=== PATIENT | male | born 1985 | race Caucasian/White ===

== ENCOUNTER 2020-12-03 11:19 | Emergency (ER) | payer OTHER, SELFPAY ==
--- NOTE | ~2020-12-03 | XR_ITS ---
XR chest 2V DATE: 12/03/2020 11:42 INDICATION: Chest pain, shortness of breath. History of asthma. TECHNIQUE: 2 views COMPARISON: 09/15/2009 portable AP chest FINDINGS: There are extensive patchy infiltrates scattered throughout both lungs, most consistent wit h bilateral pneumonia. Differential diagnosis includes less likely pulmonary edema, pulmonary hemorrh age. Heart size is normal. No pleural effusion. No pneumothorax. Included skeletal structures are unremarkable. IMPRESSION: Patchy bilateral pulmonary infiltrates, most suggestive of bilateral pneumonia. Less like ly considerations would be pulmonary edema or pulmonary hemorrhage Reviewed, dictated and finalized at location A. IMPRESSION: Patchy bilateral pulmonary infiltrates, most suggestive of bilatera l pneumonia. Less likely considerations would be pulmonary edema or pulmonary h emorrhage
[2020-12-03 11:29] VITALS: BP 132/76; PULSE 103; RESP 18; TEMP 36.7; O2SAT 93
--- NOTE | 2020-12-03 11:34 | ECG_ITS ---
Measurements Intervals [place] Rate: 105 P: 39 [place]: 148 QRS: 23 QRSD: 97 T: 30 QT: 341 QTc: 452 Interpretive Statements SINUS TACHYCARDIA BASELINE ARTIFACT- I, III, AVR, AVL, AVF BORDERLINE ECG Electronically Signed On 12-03-2020 13:19:06 CDT by Ney Ferguson D.O.
--- NOTE | 2020-12-03 11:35 | ED.SOB ---
HPI - SOB/Dyspnea General Chief Complaint: Shortness of Breath/Dyspnea Stated Complaint: Shortness of Breath Time Seen by Provider: 12/03/20 11:35 Source: patient and RN notes reviewed Mode of arrival: ambulatory Limitations: no limitations History of Present Illness HPI Narrative: 34-year-old male presents to the [facility] with complaints of shortness of breath and generalized chest pain since 0530 this morning. States that it woke him up. Has a history of asthma but has not had his inhaler because of insurance issues. Had recently had his albuterol nebulizer medication refilled but states that his girlfriend will not give him the nebulizer machine. Currently smokes a pack and 1/2/day. Appears acutely ill. Denies having Covid. Denies having vaccine. Denies nausea vomiting and diarrhea. No fevers MD elicited complaint: shortness of breath, pain with inspiration and chest pain Pertinent past history: asthma and pneumonia Onset (ago): hour(s) Severity: moderate Exacerbating factors: coughing Known history of: asthma Associated symptoms: chest pain and pain with inspiration Treatment prior to arrival: none Related Data Allergies Allergy/AdvReac Type Severity Reaction Status Date / Time No Known Allergies Allergy Mild Verified 12/03/20 11:25 Review of Systems Review of Systems: All systems reviewed & are unremarkable except as noted in HPI and below Constitutional: Constitutional: Reports as per HPI and Reports fatigue Eyes: Eyes: Reports no additional eye complaints ENT: Reports system reviewed and no additional complaints, except as documented Cardiovascular: Cardiovascular: Reports as per HPI, Reports chest pain and Denies radiating jaw, neck or arm pain Respiratory: Respiratory: Reports as per HPI, Reports chest congestion and Reports dyspnea Gastrointestinal: Gastrointestinal: Reports no additional gastrointestinal complaints, Denies abdominal pain, Denies nausea and Denies vomiting Integumentary/Breasts: Skin/Breast: Reports system reviewed and no additional complaints, except as docu Neurologic: Reports system reviewed and no additional complaints, except as documented, Denies headache(s), Denies focal weakness and Denies numbness Psychiatric: Psychiatric: Reports no additional psychiatric complaints [facility] Past Medical History Medical History Asthma Social History Social History (Updated 12/03/20 @ 13:29 by Carl Mcmahon MD) Smoking status: Current every day smoker Tobacco type: cigarettes Other substance usage details: Last used fentanyl 2 days ago Gender identity (if verbalized by the patient): Male Exam Const: General: no acute distress, alert, ill appearing acutely, tired appearing and uncomfortable; No diaphoretic Nutritional Appearance: obese Orientation/consciousness: patient oriented x3 Limitations: no limitations HENMT: Head: normal to inspection Chest: Chest palpation & inspection: normal inspection of the chest Resp: Effort & Inspection: able to speak in complete sentences, no respiratory distress, no retractions, no use of accessory muscles and symmetric chest movement Auscultation: diminished lung sounds diffuse Cardio: Rate: tachycardic GI: GI Palp: Yes Soft to palpation Skin: General skin exam: pallor Neuro: General: patient oriented x3, moves all extremities and no meningeal signs Speech: normal speech Gait exam (Neuro): Normal gait present Extrem: General: normal to inspection Psych: Mental Status: mental status grossly normal Affect: normal affect Attitude: cooperative Thought content: Yes Normal thought content present Course Vital Signs Vital signs: Vital Signs Temperature 98.0 F 12/03/20 11:29 Pulse Rate 103 H 12/03/20 11:29 Respiratory Rate 18 12/03/20 11:29 Blood Pressure 132/76 12/03/20 11:29 Pulse Oximetry 93 12/03/20 11:29 Temperature 98.0 F 12/03/20 11:29
[2020-12-03] MEDS: ALBUTEROL SULFATE NEB 2.5 MG/3 ML INH INHALATION (11:49)
[2020-12-03] MEDS: IPRATROPIUM BR 0.02% INH SOLN 0.5 MG/2.5 ML VIAL INHALATION (11:49)
[2020-12-03 11:50] VITALS: PULSE 103; RESP 18; O2SAT 93
[2020-12-03 12:11] VITALS: BP 127/69; PULSE 113; RESP 20; O2SAT 98
[2020-12-03 12:12] VITALS: PULSE 113; RESP 20; O2SAT 98
== END 2020-12-03 12:17 | disposition short-term general hospital (02) ==
LOC: EXPCOLL 11:23
PROVIDERS: Emergency Provider Nurse Practitioner
DX: R06.02 Shortness of breath (principal); F17.210 Nicotine dependence, cigarettes, uncomplicated; J45.909 Unspecified asthma, uncomplicated
CPT/HCPCS: 71046; 93005; 94640; 99213; G0463

== ENCOUNTER 2020-12-03 12:40 | Observation (INO) | payer OTHER, SELFPAY ==
[2020-12-03] VITALS (11 sets, daily range): BP systolic 124–146; BP diastolic 65–96; PULSE 94–110; RESP 16–24; TEMP 36.3–36.9; O2SAT 92–99; BMI 31.8
--- NOTE | 2020-12-03 13:08 | ED.SOB ---
HPI - SOB/Dyspnea General Chief Complaint: Shortness of Breath/Dyspnea Stated Complaint: SOB/ Asthma Time Seen by Provider: 12/03/20 12:54 History of Present Illness HPI Narrative: 34 yo male sent to the ED from urgent care for suspected COVID-19 infection. He awoke this morning with cough, congestion, SOB, chills, and body aches. He presented to urgent care and was found to have low O2 saturation and patchy bilateral infiltrates on x-ray. He got a nebulizer treatment which help somewhat. He reports that prior to today he was in his usual state of health. He has ot gotten the COVID 19 vaccine. Related Data Home Medications Medication Instructions Recorded Confirmed albuterol sulfate 1 - 2 puff INHALATION TID PRN 12/03/20 12/03/20 albuterol sulfate 2.5 mg INHALATION TID PRN 12/03/20 12/03/20 famotidine 40 mg PO HS 12/03/20 12/03/20 fluoxetine 20 mg PO BID 12/03/20 12/03/20 Allergies Allergy/AdvReac Type Severity Reaction Status Date / Time pollen extracts Allergy Wheezing Verified 12/03/20 19:05 Review of Systems Review of Systems: All systems reviewed & are unremarkable except as noted in HPI and below Constitutional: Constitutional: Reports chills and Reports fatigue Cardiovascular: Cardiovascular: Reports chest pain Respiratory: Respiratory: Reports chest congestion, Reports cough and Reports dyspnea Gastrointestinal: Gastrointestinal: Reports nausea and Denies vomiting Genitourinary: Genitourinary: Reports no additional male genitourinary complaints Musculoskeletal: Musculoskeletal: Reports myalgias Neurologic: Reports system reviewed and no additional complaints, except as documented [facility] Past Medical History Medical History (Updated 12/06/20 @ 10:38 by Carl Mcmahon MD) Asthma Bipolar disorder Chronic back pain Degenerative disc disease Depression with anxiety Gastroesophageal reflux disease Gout History of suicide attempt IV drug abuse Post-traumatic stress disorder Tobacco dependence Surgical History Surgical History (Updated 12/03/20 @ 23:17 by Vicky Miguel PA-C) History of tonsillectomy Family History Family History Other Chronic obstructive pulmonary disease Colon cancer Congestive heart failure Diabetes mellitus Emphysema lung Gout Stomach cancer Social History Social History (Updated 12/03/20 @ 23:18 by Vicky Miguel PA-C) Social History: Surrogate decision maker: Ca Butt, aunt, who lives in [place]. Code status: Full code. Smoking packs per day: 2 Smoking cigarettes per day: 40.0 Years smoked: 28 Smoking pack-years: 56.00 Smoking status: Current every day smoker Tobacco type: cigarettes Second hand tobacco smoke exposure: Yes Smoking end date: 12/03/20 Alcohol intake: former Substance use type: marijuana, opiates and IV drugs Other substance usage details: IV Fentanyl 12/01/2020; marijuana daily for pain Additional living arrangements comments: Lives in [place]. Has 5 children including twins. Additional occupation/education comments: Auto repair. Gender identity (if verbalized by the patient): Male Spiritual care concerns: No Exam Const: General: alert and ill appearing Nutritional Appearance: well nourished Orientation/consciousness: patient oriented x3 HENMT: Head: normal to inspection Neck: Neck: normal visual inspection Resp: Effort & Inspection: labored and tachypneic Auscultation: crackles and lung sounds not diminished Cardio: Rate: regular rate Rhythm: regular rhythm Heart sounds: no murmurs GI: GI Palp: Yes Soft to palpation and No Tenderness to palpation present (GI) Skin: General skin exam: normal color Neuro: General: patient oriented x3, moves all extremities, no focal motor deficits and CN's II-XI intact bilaterally Speech: normal speech Extrem: General: normal to inspection and no ed
--- NOTE | 2020-12-03 13:57 | ECG_ITS ---
Measurements Intervals [place] Rate: 108 P: 46 [place]: 169 QRS: 21 QRSD: 102 T: 29 QT: 349 QTc: 469 Interpretive Statements SINUS TACHYCARDIA ABNORMAL ECG Electronically Signed On 12-03-2020 16:43:45 CDT by Ney Ferguson D.O.
[2020-12-03 14:07] LABS: Basophils Percent Auto 0.2 % (0.2-1.2); Eosinophils Percent Auto 0.1 % (0-4.4); Hematocrit 39.8 % (42.0-52.0); Hemoglobin 13.3 g/dL (14.0-18.0); Immature Granulocyte Absolute 0.09 K/mm3 (0.00-0.031); Immature Granulocyte Percent A 0.5 % (0-0.5); Lymphocytes Absolute Auto 1.14 K/mm3 (0.9-3.2); Lymphocytes Percent Auto 5.8 % (18.3-44.2); Mean Corpuscular HGB Conc 33.4 g/dl (32-36); Mean Corpuscular Hemoglobin 29.6 pg (26-34); Mean Corpuscular Volume 88.6 fl (80-100); Mean Platelet Volume 10.7 fl (7.4-10.4); Monocytes Absolute Auto 1.1 K/mm3 (0.1-0.6); Monocytes Percent Auto 5.4 % (2.6-8.5); Neutrophils Absolute Auto 17.4 K/mm3 (1.3-6.7); Platelet Count Result 238 k/mm3 (150-375); Red Blood Count 4.49 M/mm3 (4.6-6.20); Red Cell Distribution Width 12.8 % (11.5-14.5); White Blood Count 19.8 K/mm3 (4.5-10.0)
[2020-12-03 14:18] LABS: Lactic Acid Reflex 1.7 mmol/L (0.7-2.1)
[2020-12-03 14:19] LABS: Prothrombin Time 14.2 Seconds (11.1-14.7)
[2020-12-03 14:20] LABS: Partial Thromboplastin Time 26.5 SECONDS (22.3-36.8)
[2020-12-03 14:21] LABS: Alanine Aminotransferase 22 U/L (4-50); Albumin Level 4.1 g/dL (3.5-5.1); Alkaline Phosphatase 57 U/L (38-126); Anion Gap 5 mmol/L (8-16); Aspartate Amino Transferase 26 U/L (17-59); Bilirubin,Total 0.7 mg/dL (0.2-1.3); Blood Urea Nitrogen 16 mg/dL (9-20); Calcium 9.2 mg/dL (8.4-10.2); Carbon Dioxide 29 mmol/L (22-30); Chloride 101 mmol/L (98-107); Estimated CRCL calculation 165 ml/min; Estimated Glomerular Filt Rate > 60; Glucose 123 mg/dL (75-110); Potassium 4.2 mmol/L (3.4-5.0); Sodium 135 mmol/L (137-145)
[2020-12-03] MEDS: DEXAMETHASONE SOD PHOS INJ 4 MG/ML VIAL 10 MG IV PUSH (14:37)
--- NOTE | 2020-12-03 15:33 | ECG_ITS ---
Measurements Intervals [place] Rate: 97 P: 49 [place]: 165 QRS: 20 QRSD: 106 T: 28 QT: 369 QTc: 470 Interpretive Statements SINUS RHYTHM BASELINE ARTIFACT- II, III, AVF, V3-V6 NORMAL ECG Electronically Signed On 12-06-2020 8:47:45 CDT by Ney Ferguson D.O.
--- NOTE | 2020-12-03 17:30 | PM.IMHP ---
H&P: HPI History of Present Illness Date/Time: 12/03/20 17:30 Chief Complaint: Shortness of breath. Narrative: This is a 34-year-old male smoker with asthma and longstanding IV fentanyl use who presented to emergency department earlier today from a local urgent care for evaluation shortness of breath. He lives in [place] but is in the area for the of his twins who were born within the last week or so. He was in his usual state of health when he went to bed last night however he woke up this morning feeling pretty bad with symptoms to include shortness of breath, chills, body aches, headache, congestion, and cough. At urgent care he was found to be hypoxic and bilateral patchy infiltrates were noted on x-ray. A nebulizer did help somewhat however he continues to have an oxygen requirement is being admitted in this setting. He has no known exposure to those positive for COVID-19. He is not vaccinated for such. He has not had a fever to his knowledge. No chest pain or pleuritic pain. He denies nausea, vomiting, and diarrhea. Weight has remained stable. No hemoptysis. Review of Systems Review of Systems: Narrative: Twelve systems were reviewed with pertinent positives and negatives as per HPI. He has chronic back pain and when he was no longer being prescribed opiates he began using sentinel and is now an almost daily IV fentanyl user. He is part of the clean needle exchange program. Has had recent HIV and hepatitis testing which were negative. No concerns for aspiration. Except as documented, all other systems were reviewed and are negative. [facility] Past Medical History Medical History (Updated 12/03/20 @ 23:20 by Vicky Miguel PA-C) Asthma Bipolar disorder Chronic back pain Degenerative disc disease Depression with anxiety Gastroesophageal reflux disease Gout History of suicide attempt IV drug abuse Post-traumatic stress disorder Tobacco dependence Surgical History Surgical History (Updated 12/03/20 @ 23:17 by Vicky Miguel PA-C) History of tonsillectomy Family History Family History Other Chronic obstructive pulmonary disease Colon cancer Congestive heart failure Diabetes mellitus Emphysema lung Gout Stomach cancer Social History Social History (Updated 12/03/20 @ 23:18 by Vicky Miguel PA-C) Social History: Surrogate decision maker: Ca Butt, aunt, who lives in [place]. Code status: Full code. Smoking packs per day: 2 Smoking cigarettes per day: 40.0 Years smoked: 28 Smoking pack-years: 56.00 Smoking status: Current every day smoker Tobacco type: cigarettes Second hand tobacco smoke exposure: Yes Smoking end date: 12/03/20 Alcohol intake: former Substance use type: marijuana, opiates and IV drugs Other substance usage details: IV Fentanyl 12/01/2020; marijuana daily for pain Additional living arrangements comments: Lives in [place]. Has 5 children including twins. Additional occupation/education comments: Auto repair. Gender identity (if verbalized by the patient): Male Spiritual care concerns: No Meds Home Medications and Allergies Home Medications Medication Instructions Recorded Confirmed Type albuterol sulfate 1 - 2 puff INHALATION TID PRN 12/03/20 12/03/20 History albuterol sulfate 2.5 mg INHALATION TID PRN 12/03/20 12/03/20 History famotidine 40 mg PO HS 12/03/20 12/03/20 History fluoxetine 20 mg PO BID 12/03/20 12/03/20 History Allergies Allergy/AdvReac Type Severity Reaction Status Date / Time pollen extracts Allergy Wheezing Verified 12/03/20 19:05 Vital Signs Vital Signs - 24 hr 12/03/20 12:43 12/03/20 12:58 12/03/20 14:34 Temperature 98.1 F 97.7 F 98.5 F Pulse Rate 110 H 96 94 Respiratory Rate 20 20 20 Blood Pressure 146/96 H 142/88 H 134/82 Pulse Oximetry 92 94 98 12/03/20 14:35 12/03/20 15:30 12/03/20 1
--- NOTE | 2020-12-03 18:38 | ADMGEN ---
This patient, Jeff Edwards, was admitted to 3 [facility] Surg Room 327-01 at 1750. Report received from Anshu in ED. Patient/family oriented to hospital policies and general routines including ID bracelet, bed and alarms, visiting hours, pain management, procedures, bathroom and other care routines, personal items, smoking policy, room service/diet, and visiting hours. Information on how to activate the Rapid Response Team has been discussed. Patient/Family are encouraged to report perceived risks to care and to ask questions if they do not understand what they are told or what they should do.
[2020-12-03] MEDS: HYDROcodone/acetaminophen (*CRX) 7.5-325 MG TABLET 1 TAB PO (20:18)
[2020-12-03] MEDS: ALPRAZolam (*CRX) 0.5 MG TABLET PO (20:20)
[2020-12-03] MEDS: IPRATROPIUM BR 0.02% INH SOLN 0.5 MG/2.5 ML VIAL INHALATION (20:26)
[2020-12-03] MEDS: ALBUTEROL SULFATE NEB 2.5 MG/0.5 ML INH 5 MG INHALATION (20:26)
[2020-12-03 23:32] LABS: SARS-CoV-2 RNA PCR Negative
== END 2020-12-03 21:25 | disposition left against medical advice (07) ==
LOC: ANHED 16:34 → ANH3MEDSUR 17:02
PROVIDERS: Admitting Provider Internal Medicine; Emergency Provider Emergency Medicine; Visit Provider Internal Medicine
DX: J18.9 Pneumonia, unspecified organism (principal); R09.02 Hypoxemia; K21.9 Gastro-esophageal reflux disease without esophagitis; F41.8 Other specified anxiety disorders; M10.9 Gout, unspecified; F31.9 Bipolar disorder, unspecified; F43.10 Post-traumatic stress disorder, unspecified; G89.29 Other chronic pain; M54.9 Dorsalgia, unspecified; F17.210 Nicotine dependence, cigarettes, uncomplicated; F12.90 Cannabis use, unspecified, uncomplicated; F11.10 Opioid abuse, uncomplicated; Z79.51 Long term (current) use of inhaled steroids; Z20.822 Contact with and (suspected) exposure to COVID-19
CPT/HCPCS: 36415; 71046; 80053; 83605; 85025; 85610; 85730; 86140; 87040; 93005; 94640; 96365; 96367; 96375; 99285; A9270; C9803; G0378; G0379; J0456; J0696; J1100; U0003; U0005